=== PATIENT | male | born 1960 | race African-American/Black ===

== ENCOUNTER 2020-04-12 00:50 | Inpatient (IN) | payer OTHER ==
[~2020-04-12] VITALS: Ht 177.8 cm; Wt 80.0 kg
[2020-04-12] MEDS ORDERED: ACETAMINOPHEN 500 MG TAB PO ONE ×3 (01:45→14:00)
[2020-04-12 03:05] LABS: Basophils # (auto) 0.1 10 ^3/uL (0-0.2); Basophils % (auto) 0.6 % (0.0-2.0); Eosinophils # (auto) 0 10 ^3/uL (0-0.8); Hemoglobin 12.1 g/dL (13.5-17.5); Lymphocytes # (auto) 0.1 10 ^3/uL (0.4-5.4); Lymphocytes % (auto) 0.8 % (10.0-50.0); Mean Corpuscular Hemoglobin 31.3 pg (28.0-32.0); Mean Corpuscular Hgb Conc. 32.8 g/dL (32.0-36.0); Mean Corpuscular Volume 95.5 fL (80.0-100.0); Monocytes # (auto) 0.8 10 ^3/uL (0-1.3); Neutrophils % (auto) 90.6 % (37.0-80.0); Platelet Count (auto) 148 10^3/uL (140-450); Red Blood Cells 3.87 10^6/uL (4.5-5.90); Red Cell Distribution Width 15.9 % (11.8-14.3); White Blood Cell 9.9 10^3/uL (4.4-10.8)
[2020-04-12 03:22] LABS: Albumin 3.7 g/dL (3.4-5.0); Calcium 8.1 mg/dL (8.5-10.1); Potassium 4.4 mmol/L (3.5-5.1)
[2020-04-12 03:28] LABS: Bilirubin, Total 0.6 mg/dL (0.2-1.0); Total Protein 8.2 g/dL (6.4-8.2)
[2020-04-12 03:47] LABS: INR 1.15 (0.9-1.15); Partial Thromboplastin Time 31.5 sec (23.64-32.05)
[2020-04-12 03:50] LABS: BUN/Creatinine Ratio 5.7
[2020-04-12] MEDS ORDERED: cloNIDine HCL 0.1 MG TAB PO ONE (07:00)
[2020-04-12 08:19] LABS: Lactate Dehydrogenase 302 U/L (87-241)
[2020-04-12 08:27] LABS: CRP High Sensitivity > 19 mg/dL (< 0.3)
[2020-04-12] MEDS ORDERED: SODIUM CHLORIDE 0.9% 1,000 ML IV SCH (14:38)
[2020-04-12] MEDS ORDERED: MORPHINE SULF INJ 2 MG/ML SYRINGE 1ML IV PRN (14:45)
[2020-04-12] MEDS ORDERED: ALUM & MAG HYDROX-SIMETH LIQ(MAALOX) 30 ML PO PRN (14:45)
[2020-04-12] MEDS ORDERED: LORazepam 0.5 MG TAB PO PRN (14:45)
[2020-04-12] MEDS ORDERED: ACETAMINOPHEN 500 MG TAB PO PRN (14:45)
[2020-04-12] MEDS ORDERED: ACETAMINOPHEN 325 MG TAB PO PRN ×2 (14:45→21:15)
[2020-04-12] MEDS ORDERED: NITROGLYCERIN 0.4 MG SL TAB SL PRN (14:45)
[2020-04-12 16:24] LABS: Basophils # (auto) 0 10 ^3/uL (0-0.2); Basophils % (auto) 0.4 % (0.0-2.0); Eosinophils # (auto) 0.1 10 ^3/uL (0-0.8); Eosinophils % (auto) 0.6 % (0.0-7.0); Hemoglobin 11.1 g/dL (13.5-17.5); Lymphocytes # (auto) 0.1 10 ^3/uL (0.4-5.4); Lymphocytes % (auto) 1.1 % (10.0-50.0); Mean Corpuscular Hgb Conc. 32.7 g/dL (32.0-36.0); Mean Corpuscular Volume 94.8 fL (80.0-100.0); Monocytes # (auto) 0.7 10 ^3/uL (0-1.3); Monocytes % (auto) 8.9 % (0.0-12.0); Platelet Count (auto) 131 10^3/uL (140-450); Red Blood Cells 3.58 10^6/uL (4.5-5.90); Red Cell Distribution Width 16.4 % (11.8-14.3); White Blood Cell 7.9 10^3/uL (4.4-10.8)
[2020-04-12 16:34] LABS: Albumin 3.2 g/dL (3.4-5.0); Anion Gap 13 (5-15); Calcium 7.9 mg/dL (8.5-10.1); Carbon Dioxide 20 mmol/L (21-32); Chloride 101 mmol/L (98-107); Glucose 116 mg/dL (74-106); Magnesium 2.1 mg/dL (1.6-2.6); Potassium 4.8 mmol/L (3.5-5.1); Sodium 134 mmol/L (136-145)
[2020-04-12 16:42] LABS: Alanine Aminotransferase 18 U/L (16-61); Alkaline Phosphatase 163 U/L (45-117); Aspartate Aminotransferase 24 U/L (15-37); BUN/Creatinine Ratio 6.4; Bilirubin, Total 0.4 mg/dL (0.2-1.0); GFR African American 4 mL/min; GFR Non-African American 3 mL/min; Lactate Dehydrogenase 219 U/L (87-241); Total Protein 7.3 g/dL (6.4-8.2)
[2020-04-12] MEDS ORDERED: NIFE1TAB30 PO (16:50)
[2020-04-12] MEDS ORDERED: METO-169 PO (16:50)
[2020-04-12] MEDS ORDERED: SEVE800T8 PO (16:50)
[2020-04-12 16:55] LABS: Blood Urea Nitrogen 103 mg/dL (7-18)
[2020-04-12 17:18] LABS: CRP High Sensitivity > 19.0 mg/dL (< 0.3)
[2020-04-12] MEDS ORDERED: FUROSEMIDE 100 MG/10ML VIAL IV ONE (21:00)
[2020-04-12] MEDS ORDERED: DexAMETHasone SOD PHOS 4 MG/1ML SDV INJ IV ONE (21:00)
[2020-04-12] MEDS ORDERED: HEPARIN SODIUM (PORCINE) 5000 UNITS/ML 1ML VIAL IV ONE (21:15)
[2020-04-12 21:29] VITALS: BP 160/101
[2020-04-12 21:30] VITALS: BP 160/101
[2020-04-12] MEDS ORDERED: ALBUTEROL SULF HFA 90MCG INH 200DOSE IN SCH (22:00)
[2020-04-12] MEDS: MORPHINE SULF INJ 2 MG/ML SYRINGE 1ML IV PRN (22:08)
[2020-04-12] MEDS: hydrALAZINE HCL 25 MG TAB PO SCH (22:09)
[2020-04-12] MEDS: DOXYCYCLINE 100MG/250ML 250 ML IV SCH (23:09)
[2020-04-13] MEDS: HYDROmorphone HCL 2 MG/ML VL IV PRN ×2 (01:25→19:42)
[2020-04-13 05:00] VITALS: BP 150/93
[2020-04-13] MEDS: hydrALAZINE HCL 25 MG TAB PO SCH ×3 (05:56→22:17)
[2020-04-13] MEDS ORDERED: FUROSEMIDE 40 MG/4 ML VIAL IV SCH (06:00)
[2020-04-13 06:57] LABS: Basophils # (auto) 0.1 10 ^3/uL (0-0.2); Basophils % (auto) 0.5 % (0.0-2.0); Eosinophils # (auto) 0.1 10 ^3/uL (0-0.8); Eosinophils % (auto) 0.9 % (0.0-7.0); Hemoglobin 10.7 g/dL (13.5-17.5); Lymphocytes # (auto) 0.1 10 ^3/uL (0.4-5.4); Lymphocytes % (auto) 1.1 % (10.0-50.0); Mean Corpuscular Hemoglobin 31.2 pg (28.0-32.0); Mean Corpuscular Hgb Conc. 33.3 g/dL (32.0-36.0); Mean Corpuscular Volume 93.6 fL (80.0-100.0); Monocytes % (auto) 9.4 % (0.0-12.0); Neutrophils # (auto) 9.5 10 ^3/uL (1.6-8.6); Neutrophils % (auto) 88.1 % (37.0-80.0); Platelet Count (auto) 131 10^3/uL (140-450); Red Blood Cells 3.41 10^6/uL (4.5-5.90); Red Cell Distribution Width 16.2 % (11.8-14.3); White Blood Cell 10.8 10^3/uL (4.4-10.8)
[2020-04-13 07:16] LABS: INR 1.07 (0.9-1.15); Partial Thromboplastin Time 37.6 sec (23.64-32.05)
[2020-04-13 07:21] LABS: Potassium 5.5 mmol/L (3.5-5.1)
[2020-04-13 07:27] LABS: Bilirubin, Total 0.4 mg/dL (0.2-1.0); Calcium 7.8 mg/dL (8.5-10.1); Magnesium 2.4 mg/dL (1.6-2.6); Phosphorus 3.5 mg/dL (2.5-4.90); Total Protein 7.2 g/dL (6.4-8.2)
[2020-04-13 08:00] VITALS: BP 157/92
[2020-04-13] MEDS: SEVELAMER 800 MG TAB PO SCH ×3 (08:00→17:27)
[2020-04-13 09:05] VITALS: BP 157/92
[2020-04-13] MEDS: ZINC SULFATE 220mg CAP or TAB PO SCH (09:47)
[2020-04-13] MEDS: ASCORBIC ACID 1,000 MG TAB PO SCH (09:47)
[2020-04-13] MEDS: CHOLECALCIFEROL (VITD3) 1,000UNIT=25mCg TAB PO SCH (09:47)
[2020-04-13] MEDS: METOPROLOL SUCCINATE XL 50 MG TAB PO SCH (09:56)
[2020-04-13] MEDS: DOXYCYCLINE 100MG/250ML 250 ML IV SCH ×2 (09:57→22:17)
[2020-04-13] MEDS: ONDANSETRON HCL 4 MG/2 ML VIAL IV PRN (09:58)
[2020-04-13] MEDS: MORPHINE SULF INJ 2 MG/ML SYRINGE 1ML IV PRN ×2 (09:58→17:04)
[2020-04-13] MEDS ORDERED: ENOXAPARIN SOD 30 MG/0.3 ML SYRINGE SC SCH (10:00)
[2020-04-13] MEDS ORDERED: DexAMETHasone SOD PHOS 4 MG/1ML SDV INJ IV SCH (10:00)
[2020-04-13] MEDS ORDERED: CHOLECALCIFEROL (VITD3) 1,000UNIT=25mCg TAB PO SCH (10:00)
[2020-04-13] MEDS ORDERED: SODIUM CHL 0.9% 1000 ML BAG XX ONE (10:45)
[2020-04-13 12:51] VITALS: BP 156/98
[2020-04-13] MEDS ORDERED: VANCOMYCIN 1,250 MG in D5W 5% 250 ML IV ONE (15:00)
[2020-04-13 16:35] VITALS: BP 162/99
[2020-04-13] MEDS: hydrALAZINE HCL 20 MG/ML VL IV PRN (16:47)
[2020-04-13 22:00] VITALS: BP 132/92
[2020-04-14] MEDS: MORPHINE SULF INJ 2 MG/ML SYRINGE 1ML IV PRN ×3 (01:47→18:47)
[2020-04-14 05:16] VITALS: BP 140/84
[2020-04-14] MEDS: hydrALAZINE HCL 25 MG TAB PO SCH ×3 (06:08→21:32)
[2020-04-14 07:22] LABS: Basophils # (auto) 0 10 ^3/uL (0-0.2); Basophils % (auto) 0.3 % (0.0-2.0); Eosinophils # (auto) 0 10 ^3/uL (0-0.8); Hematocrit 33.7 % (41.0-53.0); Hemoglobin 11.1 g/dL (13.5-17.5); Lymphocytes # (auto) 0.2 10 ^3/uL (0.4-5.4); Lymphocytes % (auto) 2.3 % (10.0-50.0); Mean Corpuscular Hemoglobin 30.6 pg (28.0-32.0); Mean Corpuscular Hgb Conc. 32.8 g/dL (32.0-36.0); Mean Corpuscular Volume 93.4 fL (80.0-100.0); Monocytes # (auto) 1.4 10 ^3/uL (0-1.3); Monocytes % (auto) 14.5 % (0.0-12.0); Neutrophils # (auto) 8.1 10 ^3/uL (1.6-8.6); Neutrophils % (auto) 82.9 % (37.0-80.0); Platelet Count (auto) 151 10^3/uL (140-450); Red Blood Cells 3.61 10^6/uL (4.5-5.90); Red Cell Distribution Width 16.4 % (11.8-14.3); White Blood Cell 9.8 10^3/uL (4.4-10.8)
[2020-04-14 07:36] LABS: Calcium 7.3 mg/dL (8.5-10.1); Magnesium 2.1 mg/dL (1.6-2.6)
[2020-04-14 07:39] LABS: BUN/Creatinine Ratio 6.7
[2020-04-14] MEDS: ZINC SULFATE 220mg CAP or TAB PO SCH (08:14)
[2020-04-14] MEDS: ASCORBIC ACID 1,000 MG TAB PO SCH (08:14)
[2020-04-14 09:00] VITALS: BP 152/97
[2020-04-14] MEDS ORDERED: SODIUM CHL 0.9% 1000 ML BAG XX ONE (09:30)
[2020-04-14] MEDS: ONDANSETRON HCL 4 MG/2 ML VIAL IV PRN (09:40)
[2020-04-14] MEDS: METOPROLOL SUCCINATE XL 50 MG TAB PO SCH (09:41)
[2020-04-14] MEDS: SEVELAMER 800 MG TAB PO SCH ×3 (09:41→17:25)
[2020-04-14] MEDS: DOXYCYCLINE 100MG/250ML 250 ML IV SCH ×2 (09:41→21:31)
[2020-04-14] MEDS: HYDROmorphone HCL 2 MG/ML VL IV PRN (09:41)
[2020-04-14] MEDS: CHOLECALCIFEROL (VITD3) 1,000UNIT=25mCg TAB PO SCH (09:41)
[2020-04-14] MEDS: HEPARIN SODIUM (PORCINE) 5000 UNITS/ML 1ML VIAL SC SCH ×2 (09:42→21:33)
[2020-04-14 13:00] VITALS: BP 150/101
[2020-04-14 17:00] VITALS: BP 142/91
[2020-04-14 22:00] VITALS: BP 134/86
[2020-04-15] MEDS: MORPHINE SULF INJ 2 MG/ML SYRINGE 1ML IV PRN ×3 (01:19→17:35)
[2020-04-15 05:00] VITALS: BP 134/90
[2020-04-15 06:01] LABS: Hemoglobin 11.7 g/dL (13.5-17.5); Mean Corpuscular Hemoglobin 31.5 pg (28.0-32.0); Mean Corpuscular Hgb Conc. 33.4 g/dL (32.0-36.0); Mean Corpuscular Volume 94.4 fL (80.0-100.0); Platelet Count (auto) 154 10^3/uL (140-450); Red Blood Cells 3.71 10^6/uL (4.5-5.90); Red Cell Distribution Width 16.5 % (11.8-14.3); White Blood Cell 8.7 10^3/uL (4.4-10.8)
[2020-04-15 06:18] LABS: Basophils % (manual) 0 (0.0-2.0); Blast Cells 0; Eosinophils % (manual) 0 (0-7); Metamyelocytes % 0; Myelocytes % 0; Promyelocytes % 0; Reactive Lymphocytes 0
[2020-04-15 06:19] LABS: Potassium 3.9 mmol/L (3.5-5.1)
[2020-04-15] MEDS: hydrALAZINE HCL 25 MG TAB PO SCH ×3 (06:20→21:51)
[2020-04-15 06:32] LABS: Albumin 2.9 g/dL (3.4-5.0); BUN/Creatinine Ratio 6.7; Bilirubin, Total 0.4 mg/dL (0.2-1.0); Calcium 7.6 mg/dL (8.5-10.1); Total Protein 7.4 g/dL (6.4-8.2)
[2020-04-15 08:00] LABS: Band Neutrophils % (manual) 1; Lymphocytes % (manual) 10 (10.0-50.0); Monocytes % (manual) 17 (0-12)
[2020-04-15] MEDS: SEVELAMER 800 MG TAB PO SCH ×3 (08:35→17:35)
[2020-04-15] MEDS: hydrALAZINE HCL 20 MG/ML VL IV PRN (08:36)
[2020-04-15 09:00] VITALS: BP 166/95
[2020-04-15] MEDS: CHOLECALCIFEROL (VITD3) 1,000UNIT=25mCg TAB PO SCH (09:50)
[2020-04-15] MEDS: DOXYCYCLINE 100MG/250ML 250 ML IV SCH ×2 (09:50→21:51)
[2020-04-15] MEDS: METOPROLOL SUCCINATE XL 50 MG TAB PO SCH (09:50)
[2020-04-15] MEDS: HEPARIN SODIUM (PORCINE) 5000 UNITS/ML 1ML VIAL SC SCH ×2 (09:51→21:51)
[2020-04-15] MEDS ORDERED: ASCORBIC ACID 500 MG TAB PO SCH (10:00)
[2020-04-15] MEDS ORDERED: IBUPROFEN 600 MG TAB PO PRN (12:00)
[2020-04-15 13:00] VITALS: BP 149/99
[2020-04-15] MEDS: TROLAMINE SALICYLATE 10% TOP CREAM TOP PRN (14:00)
[2020-04-15 17:00] VITALS: BP 138/91
[2020-04-15 21:57] VITALS: BP 124/96
[2020-04-16 05:00] VITALS: BP 160/100
[2020-04-16] MEDS: hydrALAZINE HCL 25 MG TAB PO SCH ×3 (05:55→22:23)
[2020-04-16] MEDS ORDERED: VANCOMYCIN 500 MG in D5W 5% 100 ML IV ONE (07:00)
[2020-04-16 07:54] LABS: Hematocrit 38.3 % (41.0-53.0); Hemoglobin 12.6 g/dL (13.5-17.5); Mean Corpuscular Hemoglobin 30.6 pg (28.0-32.0); Mean Corpuscular Hgb Conc. 32.9 g/dL (32.0-36.0); Mean Corpuscular Volume 93.1 fL (80.0-100.0); Platelet Count (auto) 267 10^3/uL (140-450); Red Blood Cells 4.11 10^6/uL (4.5-5.90); Red Cell Distribution Width 16.6 % (11.8-14.3); White Blood Cell 10.9 10^3/uL (4.4-10.8)
[2020-04-16 08:00] LABS: Basophils % (manual) 0 (0.0-2.0); Blast Cells 0; Eosinophils % (manual) 0 (0-7); Metamyelocytes % 0; Myelocytes % 0; Promyelocytes % 0; Reactive Lymphocytes 0
[2020-04-16] MEDS: SEVELAMER 800 MG TAB PO SCH ×3 (08:00→18:45)
[2020-04-16 08:22] LABS: BUN/Creatinine Ratio 6.6; Calcium 8.2 mg/dL (8.5-10.1)
[2020-04-16] MEDS: TROLAMINE SALICYLATE 10% TOP CREAM TOP PRN (08:24)
[2020-04-16 09:00] VITALS: BP 126/100
[2020-04-16 09:32] LABS: Band Neutrophils % (manual) 5; Lymphocytes % (manual) 4 (10.0-50.0); Monocytes % (manual) 20 (0-12)
[2020-04-16] MEDS: METOPROLOL SUCCINATE XL 50 MG TAB PO SCH (10:37)
[2020-04-16] MEDS: CHOLECALCIFEROL (VITD3) 1,000UNIT=25mCg TAB PO SCH (10:37)
[2020-04-16] MEDS: DOXYCYCLINE 100MG/250ML 250 ML IV SCH ×2 (10:39→22:22)
[2020-04-16] MEDS: HEPARIN SODIUM (PORCINE) 5000 UNITS/ML 1ML VIAL SC SCH ×2 (10:41→22:41)
[2020-04-16 13:00] VITALS: BP 142/96
[2020-04-16] MEDS ORDERED: VANCOMYCIN 1GM/250ML 250 ML IV ONE (15:15)
[2020-04-16 16:44] VITALS: BP 129/93
[2020-04-16 22:00] VITALS: BP 134/97
[2020-04-17 05:00] VITALS: BP 150/109
[2020-04-17] MEDS: hydrALAZINE HCL 25 MG TAB PO SCH (05:44)
[2020-04-17] MEDS ORDERED: ceFAZolin 1GM 2 GM in D5W 5% 100 ML IV ONE (07:00)
[2020-04-17] MEDS ORDERED: SODIUM CHL 0.9% 1000 ML BAG XX ONE (07:00)
[2020-04-17 08:22] LABS: Calcium 7.5 mg/dL (8.5-10.1); Potassium 4.3 mmol/L (3.5-5.1)
[2020-04-17 09:00] VITALS: BP 159/101
[2020-04-17] MEDS: SEVELAMER 800 MG TAB PO SCH ×2 (10:01→12:11)
[2020-04-17] MEDS: CHOLECALCIFEROL (VITD3) 1,000UNIT=25mCg TAB PO SCH (10:40)
[2020-04-17] MEDS: METOPROLOL SUCCINATE XL 50 MG TAB PO SCH (10:40)
[2020-04-17] MEDS: HEPARIN SODIUM (PORCINE) 5000 UNITS/ML 1ML VIAL SC SCH (10:41)
[2020-04-17 11:57] VITALS: BP 160/98
[2020-04-17] MEDS: DOXYCYCLINE 100MG/250ML 250 ML IV SCH (12:11)
[2020-04-17 13:00] VITALS: BP 137/90
== END 2020-04-17 14:27 | disposition home or self-care (01) | DRG 871 ==
LOC: ER 00:51 → TELE 00:52 → TELE-WESTW 21:14
PROVIDERS: ADMIT Hospitalist; ATTEND Internal Medicine Geriatric Medicine
PROC: 5A1D70Z Performance of Urinary Filtration, Intermittent, Less than 6 Hours Per Day (ICD-10-PCS; principal; 2020-04-13)
PROC: 5A1D70Z Performance of Urinary Filtration, Intermittent, Less than 6 Hours Per Day (ICD-10-PCS; 2020-04-14)
PROC: 5A1D70Z Performance of Urinary Filtration, Intermittent, Less than 6 Hours Per Day (ICD-10-PCS; 2020-04-15)
PROC: 5A1D70Z Performance of Urinary Filtration, Intermittent, Less than 6 Hours Per Day (ICD-10-PCS; 2020-04-17)
DX: A41.01 Sepsis due to Methicillin susceptible Staphylococcus aureus (principal); N18.6 End stage renal disease; J18.9 Pneumonia, unspecified organism; I13.2 Hypertensive heart and chronic kidney disease with heart failure and with stage 5 chronic kidney disease, or end stage renal disease; E87.5 Hyperkalemia; R79.82 Elevated C-reactive protein (CRP); E78.5 Hyperlipidemia, unspecified; D50.9 Iron deficiency anemia, unspecified; M43.6 Torticollis; D63.1 Anemia in chronic kidney disease; D53.9 Nutritional anemia, unspecified; T38.0X5A Adverse effect of glucocorticoids and synthetic analogues, initial encounter; R74.0 Nonspecific elevation of levels of transaminase and lactic acid dehydrogenase [LDH]; R94.4 Abnormal results of kidney function studies; R79.89 Other specified abnormal findings of blood chemistry; Z99.2 Dependence on renal dialysis; Z79.899 Other long term (current) drug therapy; Z88.0 Allergy status to penicillin; I50.9 Heart failure, unspecified; Z20.828 Contact with and (suspected) exposure to other viral communicable diseases
CPT/HCPCS: 36415; 71045; 78582; 80048; 80053; 80061; 80202; 82728; 83036; 83540; 83550; 83605; 83615; 83735; 83880; 84100; 84443; 84484; 85007; 85025; 85027; 85379; 85610; 85730; 86141; 87040; 87070; 87077; 87186; 87804; 87880; 90935; 93005; 93306; 99291; G0378; J0690; J1100; J1642; J2405; J3490; J7060

== ENCOUNTER 2020-04-23 14:02 | Emergency (ER) | payer OTHER, MEDICAID ==
[~2020-04-23] VITALS: Ht 177.8 cm; Wt 79.4 kg
[~2020-04-23 14:02] MED LIST: METO-169 PO; NIFE1TAB30 PO; SEVE800T8 PO
[2020-04-23 14:21] VITALS: BP 129/79
[2020-04-23] MEDS ORDERED: traMADol HCL 50 MG TAB PO ONE (15:45)
== END 2020-04-23 16:02 | disposition home or self-care (01) ==
LOC: ER 14:02
DX: M50.10 Cervical disc disorder with radiculopathy, unspecified cervical region (principal); I12.0 Hypertensive chronic kidney disease with stage 5 chronic kidney disease or end stage renal disease; N18.6 End stage renal disease; Z88.0 Allergy status to penicillin
CPT/HCPCS: 72040

== ENCOUNTER 2020-08-25 16:51 | Emergency (ER) | payer OTHER, MEDICAID | END 2020-08-25 17:30 | disposition left against medical advice (07) | LOC: ER 16:51 | DX: R50.9 Fever, unspecified (principal); Z53.21 Procedure and treatment not carried out due to patient leaving prior to being seen by health care provider ==

== ENCOUNTER 2020-08-28 12:16 | Emergency (ER) | payer OTHER, MEDICAID ==
[~2020-08-28] VITALS: Ht 177.8 cm; Wt 81.6 kg
[2020-08-28 16:19] VITALS: BP 102/65
== END 2020-08-28 16:32 | disposition home or self-care (01) ==
LOC: ER 12:16
DX: M51.36 Other intervertebral disc degeneration, lumbar region (principal); M79.18 Myalgia, other site; I12.0 Hypertensive chronic kidney disease with stage 5 chronic kidney disease or end stage renal disease; N18.6 End stage renal disease; Z88.0 Allergy status to penicillin
CPT/HCPCS: 72070; 72100; 73030

== ENCOUNTER 2020-08-30 06:21 | Inpatient (IN) | payer OTHER, MEDICAID ==
[~2020-08-30] VITALS: Ht 177.8 cm; Wt 75.6 kg
[2020-08-30 07:50] LABS: Basophils # (auto) 0.1 10 ^3/uL (0-0.2); Basophils % (auto) 0.5 % (0.0-2.0); Eosinophils # (auto) 0.2 10 ^3/uL (0-0.8); Eosinophils % (auto) 1.2 % (0.0-7.0); Hematocrit 31.3 % (41.0-53.0); Lymphocytes # (auto) 0.3 10 ^3/uL (0.4-5.4); Lymphocytes % (auto) 1.5 % (10.0-50.0); Mean Corpuscular Hemoglobin 29.8 pg (28.0-32.0); Mean Corpuscular Hgb Conc. 31.9 g/dL (32.0-36.0); Mean Corpuscular Volume 93.4 fL (80.0-100.0); Monocytes # (auto) 2.7 10 ^3/uL (0-1.3); Monocytes % (auto) 13.8 % (0.0-12.0); Neutrophils # (auto) 16.1 10 ^3/uL (1.6-8.6); Platelet Count (auto) 220 10^3/uL (140-450); Red Blood Cells 3.35 10^6/uL (4.5-5.90); Red Cell Distribution Width 16.9 % (11.8-14.3); White Blood Cell 19.4 10^3/uL (4.4-10.8)
[2020-08-30 08:11] LABS: Albumin 2.6 g/dL (3.4-5.0); Anion Gap 22 (5-15); Calcium 7.5 mg/dL (8.5-10.1); Carbon Dioxide 17 mmol/L (21-32); Chloride 85 mmol/L (98-107); Glucose 134 mg/dL (74-106); Potassium 5.2 mmol/L (3.5-5.1); Sodium 124 mmol/L (136-145)
[2020-08-30 08:18] LABS: Alanine Aminotransferase 62 U/L (16-61); Alkaline Phosphatase 134 U/L (45-117); Aspartate Aminotransferase 131 U/L (15-37); BUN/Creatinine Ratio 6.2; Bilirubin, Total 0.5 mg/dL (0.2-1.0); GFR African American 3 mL/min; GFR Non-African American 2 mL/min; Total Protein 7.4 g/dL (6.4-8.2)
[2020-08-30 08:30] LABS: Blood Urea Nitrogen 139 mg/dL (7-18)
[2020-08-30] MEDS ORDERED: InsuLIN REG 1unit/0.01ml Soln (100units/ml) IV ONE (10:30)
[2020-08-30] MEDS ORDERED: ALBUTEROL SULF 2.5 MG/0.5ML(0.5%) NEB SOLN NEB ONE (10:30)
[2020-08-30] MEDS ORDERED: CALCIUM GLUC 4.65meq/50ml D5AE 50 ML IV ONE (10:30)
[2020-08-30] MEDS ORDERED: DEXTROSE (50%) 50ML SYRG IV ONE (10:30)
[2020-08-30] MEDS ORDERED: DOXYCYCLINE 100MG/250ML 250 ML IV ONE (10:30)
[2020-08-30] MEDS ORDERED: SODIUM BICARBONATE 8.4% INJ 50ML SYRINGE IV ONE (10:30)
[2020-08-30] MEDS ORDERED: FUROSEMIDE 20 MG/2 ML VIAL IV ONE (10:30)
[2020-08-30 11:01] LABS: Lactate Dehydrogenase 376 U/L (87-241)
[2020-08-30 11:02] LABS: CRP High Sensitivity > 19 mg/dL (< 0.3)
[2020-08-30] MEDS ORDERED: ONDANSETRON HCL 4 MG/2 ML VIAL IV PRN (14:15)
[2020-08-30] MEDS ORDERED: NITROGLYCERIN 0.4 MG SL TAB SL PRN (14:15)
[2020-08-30] MEDS ORDERED: MORPHINE SULF INJ 2 MG/ML SYRINGE 1ML IV PRN (14:15)
[2020-08-30] MEDS ORDERED: SEVE800T8 PO (14:48)
[2020-08-30] MEDS ORDERED: NIFE1TAB30 PO (14:48)
[2020-08-30] MEDS ORDERED: METO-6 PO (14:48)
[2020-08-30] MEDS ORDERED: HYDR-4833 PO (14:48)
[2020-08-30] MEDS: FAMOTIDINE 20 MG TAB PO SCH (18:14)
[2020-08-30] MEDS: SEVELAMER 800 MG TAB PO SCH (18:52)
[2020-08-30] MEDS: SODIUM ZIRCONIUM CYCL 10 GM PAK PO SCH ×2 (22:00→22:18)
[2020-08-30] MEDS: ACETAMINOPHEN 500 MG TAB PO PRN (22:40)
[2020-08-31] MEDS ORDERED: SODIUM ZIRCONIUM CYCL 10 GM PAK PO ONE (00:30)
[2020-08-31] MEDS: SODIUM ZIRCONIUM CYCL 10 GM PAK PO SCH (06:11)
[2020-08-31 08:07] LABS: Basophils # (auto) 0 10 ^3/uL (0-0.2); Basophils % (auto) 0.1 % (0.0-2.0); Eosinophils # (auto) 0.1 10 ^3/uL (0-0.8); Eosinophils % (auto) 0.5 % (0.0-7.0); Hematocrit 30.4 % (41.0-53.0); Hemoglobin 10.1 g/dL (13.5-17.5); Lymphocytes # (auto) 0.3 10 ^3/uL (0.4-5.4); Mean Corpuscular Hemoglobin 30.6 pg (28.0-32.0); Mean Corpuscular Hgb Conc. 33.1 g/dL (32.0-36.0); Mean Corpuscular Volume 92.6 fL (80.0-100.0); Monocytes # (auto) 2.9 10 ^3/uL (0-1.3); Monocytes % (auto) 17.4 % (0.0-12.0); Neutrophils # (auto) 13.1 10 ^3/uL (1.6-8.6); Nucleated Red Blood Cells % 0.1 %; Platelet Count (auto) 230 10^3/uL (140-450); Red Blood Cells 3.28 10^6/uL (4.5-5.90); Red Cell Distribution Width 16.6 % (11.8-14.3); White Blood Cell 16.4 10^3/uL (4.4-10.8)
[2020-08-31 08:15] LABS: Albumin 2.4 g/dL (3.4-5.0); Calcium 7.6 mg/dL (8.5-10.1)
[2020-08-31 08:20] LABS: Bilirubin, Total 0.5 mg/dL (0.2-1.0); Total Protein 6.8 g/dL (6.4-8.2)
[2020-08-31 08:40] LABS: BUN/Creatinine Ratio 7.4
[2020-08-31 08:43] LABS: Potassium 5.9 mmol/L (3.5-5.1)
[2020-08-31] MEDS: cefTRIAXone 1GM/50ML D5W 50 ML IV SCH (09:00)
[2020-08-31] MEDS ORDERED: FAMOTIDINE 20 MG TAB PO SCH (10:00)
[2020-08-31] MEDS ORDERED: AZITHROMYCIN 500MG/ 250ML 250 ML IV SCH (10:00)
[2020-08-31] MEDS: ENOXAPARIN SOD 40 MG/0.4 ML SYRINGE SC SCH (10:32)
[2020-08-31] MEDS: SEVELAMER 800 MG TAB PO SCH ×3 (10:35→18:54)
[2020-08-31] MEDS: NIFEdipine ER 30 MG TAB PO SCH (10:35)
[2020-08-31] MEDS: METOPROLOL SUCCINATE XL 50 MG TAB PO SCH (10:35)
[2020-08-31 11:20] VITALS: BP 110/60
[2020-08-31 11:35] VITALS: BP 110/60
[2020-08-31] MEDS ORDERED: SODIUM CHL 0.9% 1000 ML BAG XX ONE (12:30)
[2020-08-31] MEDS ORDERED: HEPARIN SODIUM (PORCINE) 5000 UNITS/ML 1ML VIAL ONE (12:38)
[2020-08-31 14:19] VITALS: BP 110/60
[2020-08-31] MEDS: MORPHINE SULF INJ 2 MG/ML SYRINGE 1ML IV PRN (15:00)
[2020-08-31] MEDS ORDERED: VANCOMYCIN PER PHARMACY 0 MG IV SCH (15:00)
--- NOTE | 2020-08-31 16:00 | NUR ---
Telemetry admit from ER GENOVEVA RICE admitted to Telemetry unit after SBAR received. Patient oriented to Delma Villalpando, primary RN, unit, room, bed, and unit policies regarding patient care and visiting hours. Patient now on continuous telemetry monitoring, tele box #55 and telemetry reading on arrival to unit is [place] AT 115. Updated on POC and instructed to call for assistance as needed. Bed locked in lowest position, side rails up x2, call light within reach. Safety precautions in place. Will continue to monitor for changes.
[2020-08-31 17:00] VITALS: BP 108/54
[2020-08-31] MEDS ORDERED: VANCOMYCIN 1,250 MG in D5W 5% 250 ML IV ONE (17:00)
--- NOTE | 2020-08-31 19:00 | NUR ---
Opening Shift Note Assumed care of patient, awake and alert. No S/S of distress/SOB, patient c/o pain in his back, will administer pain medication per protocol. Patient in the lowest possible position with call light within reach and bed rails up x2. Instructed on POC and to call for assist PRN, will continue to monitor for changes Q1hr and PRN.
[2020-08-31 20:00] VITALS: BP 93/60
--- NOTE | 2020-08-31 20:30 | NUR ---
[place] given. Patient states that Morphine does not help. Will monitor patient.
[2020-08-31] MEDS ORDERED: EPOETIN ALFA 10,000 UNIT/1 ML VIAL SC ONE (21:00)
[2020-09-01] MEDS: HYDROcodone-ACET 5/325MG TAB PO PRN ×2 (03:10→04:56)
[2020-09-01 06:24] LABS: Basophils # (auto) 0.1 10 ^3/uL (0-0.2); Basophils % (auto) 0.4 % (0.0-2.0); Eosinophils # (auto) 0 10 ^3/uL (0-0.8); Eosinophils % (auto) 0.2 % (0.0-7.0); Hematocrit 27.8 % (41.0-53.0); Hemoglobin 9.2 g/dL (13.5-17.5); Lymphocytes # (auto) 0.5 10 ^3/uL (0.4-5.4); Lymphocytes % (auto) 3.2 % (10.0-50.0); Mean Corpuscular Hemoglobin 30.6 pg (28.0-32.0); Mean Corpuscular Volume 92.7 fL (80.0-100.0); Monocytes # (auto) 2.8 10 ^3/uL (0-1.3); Monocytes % (auto) 17.4 % (0.0-12.0); Neutrophils # (auto) 12.7 10 ^3/uL (1.6-8.6); Neutrophils % (auto) 78.8 % (37.0-80.0); Platelet Count (auto) 283 10^3/uL (140-450); White Blood Cell 16.2 10^3/uL (4.4-10.8)
[2020-09-01 06:30] LABS: BUN/Creatinine Ratio 7.6; Calcium 7.5 mg/dL (8.5-10.1); Magnesium 2.3 mg/dL (1.6-2.6); Potassium 5.1 mmol/L (3.5-5.1)
--- NOTE | 2020-09-01 06:41 | NUR ---
Critical lab trending down; BUN 142, previously 180 Creatinine 18.8, previously 24.3. Labs trending down, will continue to monitor patient.
--- NOTE | 2020-09-01 07:35 | NUR ---
Opening Shift Note Assumed care of patient, awake and alert. No S/S of distress/SOB, patient c/o of lower back pain but denies any pain medication at this time. Updated on POC and instructed to call for assistance as needed, patient verbalized understanding. Bed locked in lowest position, side rails up x2, call light within reach. Will continue to monitor for changes Q1hr and PRN.
[2020-09-01] MEDS: SEVELAMER 800 MG TAB PO SCH ×4 (08:00→17:46)
[2020-09-01 09:00] VITALS: BP 101/58
[2020-09-01] MEDS: cefTRIAXone 1GM/50ML D5W 50 ML IV SCH (09:33)
[2020-09-01] MEDS: METOPROLOL SUCCINATE XL 50 MG TAB PO SCH ×2 (09:34→10:00)
[2020-09-01] MEDS: NIFEdipine ER 30 MG TAB PO SCH ×2 (09:34→10:00)
[2020-09-01] MEDS: ENOXAPARIN SOD 40 MG/0.4 ML SYRINGE SC SCH (09:34)
--- NOTE | 2020-09-01 10:00 | NUR ---
PATIENT HAD LARGE BOWEL MOVEMENT PATIENT CLEANED UP AND COMPLETE LINEN CHANGED. PATIENT POSITIONED FOR COMFORT.
--- NOTE | 2020-09-01 10:14 | NUR ---
BEHAVIORAL HEALTH CARE MANAGER AT BEDSIDE
[2020-09-01] MEDS ORDERED: SODIUM CHL 0.9% 1000 ML BAG XX ONE (10:30)
[2020-09-01] MEDS ORDERED: HEPARIN SODIUM (PORCINE) 5000 UNITS/ML 1ML VIAL SC ONE (10:45)
[2020-09-01] MEDS ORDERED: HYDROcodone-ACET 5/325MG TAB PO PRN (11:30)
[2020-09-01] MEDS: CARISOPRODOL 350 MG TAB PO PRN (12:24)
[2020-09-01] MEDS ORDERED: HEPARIN SODIUM (PORCINE) 5000 UNITS/ML 1ML VIAL ONE (12:26)
[2020-09-01 13:00] VITALS: BP 128/69
--- NOTE | 2020-09-01 13:18 | NUR ---
DIALYSIS COMPLETED PATIENT TOLERATED WELL PER CANAL TENDER. VITALS STABLE. LAST BP 110/54, HR 111. PER CANAL TENDER 2L REMOVED.
[2020-09-01] MEDS: FAMOTIDINE 20 MG TAB PO SCH (15:00)
[2020-09-01 17:00] VITALS: BP 104/56
[2020-09-01] MEDS ORDERED: VANCOMYCIN 1GM/250ML 250 ML IV ONE (17:00)
--- NOTE | 2020-09-01 17:10 | NUR ---
DISCHARGE HELD TILL TOMORROW PER MD JAUREGUI PATIENT IS TO BE DISCHARGED AFTER DIALYSIS IS COMPLETE AND IF PATIENT IS AMBULATING AND MOVING AROUND INDEPENDENTLY. AT THIS TIME PATIENT IS NON AMBULATORY, HUNCHED OVER IN PAIN IN BED. PATIENT STATES HE DOES NOT WANT TO MOVE AND HE WOULD RATHER GO HOME IN THE MORNING.
--- NOTE | 2020-09-01 19:40 | NUR ---
Opening Shift Note Assumed care of patient, awake and alert. No S/S of distress/SOB or pain. Instructed on POC and to call for assist PRN, will continue to monitor for changes Q1hr and PRN. Bed locked and in lowest position with call light in reach.
[2020-09-01] MEDS ORDERED: EPOETIN ALFA 10,000 UNIT/1 ML VIAL SC ONE (21:00)
[2020-09-01 22:00] VITALS: BP 112/54
[2020-09-02] MEDS: MORPHINE SULF INJ 2 MG/ML SYRINGE 1ML IV PRN (01:23)
[2020-09-02 05:34] VITALS: BP 101/68
[2020-09-02] MEDS: SEVELAMER 800 MG TAB PO SCH ×3 (08:19→18:31)
[2020-09-02 08:37] LABS: Basophils # (auto) 0 10 ^3/uL (0-0.2); Basophils % (auto) 0.1 % (0.0-2.0); Eosinophils # (auto) 0 10 ^3/uL (0-0.8); Eosinophils % (auto) 0.1 % (0.0-7.0); Hematocrit 29.3 % (41.0-53.0); Hemoglobin 9.5 g/dL (13.5-17.5); Lymphocytes # (auto) 0.7 10 ^3/uL (0.4-5.4); Lymphocytes % (auto) 3.4 % (10.0-50.0); Mean Corpuscular Hemoglobin 30.1 pg (28.0-32.0); Mean Corpuscular Hgb Conc. 32.6 g/dL (32.0-36.0); Mean Corpuscular Volume 92.4 fL (80.0-100.0); Monocytes # (auto) 2.7 10 ^3/uL (0-1.3); Monocytes % (auto) 14.1 % (0.0-12.0); Neutrophils % (auto) 82.3 % (37.0-80.0); Platelet Count (auto) 343 10^3/uL (140-450); Red Blood Cells 3.17 10^6/uL (4.5-5.90); Red Cell Distribution Width 15.8 % (11.8-14.3); White Blood Cell 19.4 10^3/uL (4.4-10.8)
[2020-09-02 09:00] VITALS: BP 124/67
[2020-09-02] MEDS: ENOXAPARIN SOD 40 MG/0.4 ML SYRINGE SC SCH (09:50)
[2020-09-02] MEDS: METOPROLOL SUCCINATE XL 50 MG TAB PO SCH (09:52)
[2020-09-02] MEDS: NIFEdipine ER 30 MG TAB PO SCH (09:52)
[2020-09-02] MEDS: cefTRIAXone 1GM/50ML D5W 50 ML IV SCH (09:53)
--- NOTE | 2020-09-02 10:00 | NUR ---
Pain Patient complained of back pain, however patient refused morphine and Hiko, Ice packs given, will reassess.
[2020-09-02] MEDS: CARISOPRODOL 350 MG TAB PO PRN (10:03)
[2020-09-02 10:36] LABS: BUN/Creatinine Ratio 6.7
--- NOTE | 2020-09-02 11:38 | NUR ---
Assessment Patient is a 60-year-old male who is alert and oriented. Prior to admission patient reside home with family and functioned independently. Prior to admission patient could care for his own ADLs. Per patient he does not have any medical equipment now. Per patient he will return home to his prior living arrangements post discharge and family will transport him home at anytime on discharge day. Patient informed me he feels safe returning home and has great family support. Informed patient he has the right to participate in all discharge planning. Patient does not have an advance directive. Patient has been provided with an advance directive. Patient verbalize understanding d/c plan. Addendum: 09/02/20 at 1140 by THADDEUS RAMOS Amended: Links added.
[2020-09-02] MEDS: ACETAMINOPHEN 500 MG TAB PO PRN (12:41)
--- NOTE | 2020-09-02 15:40 | NUR ---
Phone call to patient's mother went to voicemail . Will keep trying.
--- NOTE | 2020-09-02 15:57 | NUR ---
Per Marimar with [facility] ([phone]), patient will be seen within 24 - 48 hours post discharge. MARY has notify Che MYLES.
--- NOTE | 2020-09-02 16:15 | NUR ---
Phone call with patient's mother As per Cindy (patient's mother), she is unable to move the patient around and he does not have a wheelchair. RN will follow-up with social insurance administrator to see if wheelchair can be ordered for patient.
--- NOTE | 2020-09-02 16:45 | NUR ---
Discharge on Hold Dr. Ruggiero was notified of Cindy's concern regarding unable to move patient around and not having a wheelchair. Order for wheelchair placed and discharge to be held. Will notify patient and family.
--- NOTE | 2020-09-02 17:05 | NUR ---
Discharge held Mother Cindy ([phone]) notified that discharge is held for tomorrow 09/03/20. custodial worker will work to get wheelchair for the patient.
--- NOTE | 2020-09-02 19:07 | NUR ---
Assumed care of patient Assumed care of patient after receiving report from day RN. No s/s of distress, pain, or SOB noted, patient on 2L via NC. Patient resting in bed, locked x2 side rails for safety with HOB high fowlers. Call light within reach, patient updated on plan of care and to call for assistance. Will continue to monitor.
[2020-09-02 22:00] VITALS: BP 129/70
--- NOTE | 2020-09-02 23:29 | NUR ---
Patient repositioned Patient sat at edge of bed with RN assistance and dangled feet. Patient then repositioned laying in bed. Patient tolerated intervention well. Will continue to monitor.
--- NOTE | 2020-09-03 04:47 | NUR ---
Received call from patients girlfriend Regina. She did not have a password, per GF she had been having the day RN ask the patient to verify that it was okay to give her information. Patient is sleeping at this time; informed GF that we encourage resting in patients while hospitalized and she verbalized understanding and did not want him woken. JOANNA GargRegina stated she would call back around noon to see if he is awake to give verbal verification. JOANNA Rogers asked to pass message on to patient to call her when he can. Regina phone number [phone]. Will leave message with patient.
[2020-09-03 05:07] VITALS: BP 124/66
[2020-09-03] MEDS ORDERED: SODIUM CHL 0.9% 1000 ML BAG XX ONE (06:30)
--- NOTE | 2020-09-03 07:45 | NUR ---
Opening Shift Note Assumed care of patient, awake and alert. No S/S of distress/SOB. Instructed on POC and to call for assist PRN, will continue to monitor for changes Q1hr and PRN. Patient complained of headache, will medicate with Tylenol as ordered. compress machine operator at bedside.
[2020-09-03] MEDS: SEVELAMER 800 MG TAB PO SCH ×3 (07:50→17:49)
[2020-09-03] MEDS: ACETAMINOPHEN 500 MG TAB PO PRN (07:55)
--- NOTE | 2020-09-03 08:28 | NUR ---
Dialysis Ended 3L off, HR 120, BP 91/64
[2020-09-03 08:46] VITALS: BP 117/70
--- NOTE | 2020-09-03 09:21 | NUR ---
Consultation MARY spoke with Kristie from [facility] ([phone]), per Kristie, she will call MARY with ETA for wheelchair arrival today 09/03/2020. Per Kristie, patient has been accepted for physical therapy services, service will start 24 - 48 hours post discharge.
[2020-09-03] MEDS: cefTRIAXone 1GM/50ML D5W 50 ML IV SCH (09:31)
[2020-09-03] MEDS: ENOXAPARIN SOD 40 MG/0.4 ML SYRINGE SC SCH (09:32)
[2020-09-03] MEDS: CARISOPRODOL 350 MG TAB PO PRN (09:35)
[2020-09-03] MEDS: METOPROLOL SUCCINATE XL 50 MG TAB PO SCH (09:35)
[2020-09-03] MEDS: NIFEdipine ER 30 MG TAB PO SCH (09:35)
[2020-09-03] MEDS ORDERED: IBUPROFEN 800 MG TAB PO PRN (11:15)
--- NOTE | 2020-09-03 11:39 | NUR ---
MARY spoke with Marina from [facility] ([phone]), Per Marina, wheelchair ETA between 1 - 2 pm today. MARY notified Ai MYLES, about arrival time.
[2020-09-03 13:00] VITALS: BP 90/58
[2020-09-03 13:15] VITALS: BP 90/58
--- NOTE | 2020-09-03 15:00 | NUR ---
Wheelchair Wheelchair delivered to patient at bedside. Patient is unable to transfer to wheelchair with minimum assistance. Patient stated that he just cannot do the transfer and now agrees to go to SNF for rehab.
--- NOTE | 2020-09-03 15:03 | NUR ---
Reassessment Per Karli from [facility], patient mother declined for her son to return home. Per Karli, patient mother stated that she is unable to take care of son. SW notify Che MYLES, per Che MYLES, patient is willing to transfer to SNF for care.
--- NOTE | 2020-09-03 15:20 | NUR ---
SNF request Dr. Ruggiero notified of patient's request for SNF. He is unable to transfer to wheelchair and does not have much help at home.
[2020-09-03] MEDS: FAMOTIDINE 20 MG TAB PO SCH (15:39)
--- NOTE | 2020-09-03 16:45 | NUR ---
Out of bed Patient sitting out of bed in wheelchair. Stated that he transferred to wheelchair by himself. He will press call light when he is ready to return to bed.
[2020-09-03] MEDS ORDERED: VANCOMYCIN 500 MG in D5W 5% 100 ML IV ONE (17:00)
--- NOTE | 2020-09-03 17:14 | NUR ---
Reassessment SW spoke with Lizzie from [facility] ([phone]), patient is being place for SNF. Per Lizzie, patient possibly will transfer to SNF tomorrow. SW notify Jada MYLES, of transfer placement and provided name and number to [facility] after hour Nurse Lizzie, who is placing patient to [facility] if she can get patient accepted to that facility.
--- NOTE | 2020-09-03 17:35 | NUR ---
Back in bed Patient transferred himself back to bed from the wheelchair, he only needed help to reposition in bed.
--- NOTE | 2020-09-03 17:40 | NUR ---
SNF Still awaiting information regarding SNF acceptance. Patient is trying to gain his strength back so he can help himself at home.
--- NOTE | 2020-09-03 19:00 | NUR ---
Opening Shift Note Assumed care of patient, awake and alert. No S/S of distress/SOB or pain. Instructed on POC and to call for assist PRN, will continue to monitor for changes Q1hr and PRN.
--- NOTE | 2020-09-03 19:25 | NUR ---
[facility] Received call from [facility] regarding SNF transfer. They are arranging for patient to be transferred to SNF [facility]. New COVID test needed. cloth grader supervisor and beverage inspection machine tender RN was notified.
[2020-09-03] MEDS ORDERED: EPOETIN ALFA 10,000 UNIT/1 ML VIAL SC ONE (21:00)
[2020-09-03 22:00] VITALS: BP 94/47
[2020-09-04] MEDS: MORPHINE SULF INJ 2 MG/ML SYRINGE 1ML IV PRN (03:01)
[2020-09-04 05:00] VITALS: BP 109/65
[2020-09-04 06:53] LABS: Basophils # (auto) 0 10 ^3/uL (0-0.2); Basophils % (auto) 0.4 % (0.0-2.0); Eosinophils # (auto) 0.1 10 ^3/uL (0-0.8); Eosinophils % (auto) 0.5 % (0.0-7.0); Hematocrit 29.5 % (41.0-53.0); Hemoglobin 9.4 g/dL (13.5-17.5); Lymphocytes # (auto) 0.5 10 ^3/uL (0.4-5.4); Lymphocytes % (auto) 4.2 % (10.0-50.0); Mean Corpuscular Hemoglobin 29.7 pg (28.0-32.0); Mean Corpuscular Hgb Conc. 31.7 g/dL (32.0-36.0); Mean Corpuscular Volume 93.8 fL (80.0-100.0); Monocytes # (auto) 1.7 10 ^3/uL (0-1.3); Monocytes % (auto) 13.3 % (0.0-12.0); Neutrophils # (auto) 10.5 10 ^3/uL (1.6-8.6); Neutrophils % (auto) 81.6 % (37.0-80.0); Platelet Count (auto) 369 10^3/uL (140-450); Red Blood Cells 3.15 10^6/uL (4.5-5.90); Red Cell Distribution Width 15.9 % (11.8-14.3); White Blood Cell 12.9 10^3/uL (4.4-10.8)
--- NOTE | 2020-09-04 07:50 | NUR ---
PATIENT REFUSING RENAGEL STATES HE WILL WAIT TILL LATER HER DID NOT EAT BREAKFAST.
[2020-09-04] MEDS: SEVELAMER 800 MG TAB PO SCH ×3 (08:00→18:30)
[2020-09-04 09:00] VITALS: BP 109/68
--- NOTE | 2020-09-04 09:07 | NUR ---
Opening Shift Note Assumed care of patient, awake and alert. No S/S of distress/SOB or pain. Instructed on POC and to call for assist PRN, will continue to monitor for changes Q1hr and PRN. Bed locked in lowest position with two side rails up and call light in reach.
--- NOTE | 2020-09-04 09:30 | NUR ---
CONTACTED DR JAUREGUI REGARDING TRANSFER PAPERWORK.WILL AWAIT CALL BACK.
[2020-09-04] MEDS: NIFEdipine ER 30 MG TAB PO SCH (09:41)
[2020-09-04] MEDS: cefTRIAXone 1GM/50ML D5W 50 ML IV SCH (09:43)
[2020-09-04] MEDS: ENOXAPARIN SOD 40 MG/0.4 ML SYRINGE SC SCH (09:43)
[2020-09-04] MEDS: METOPROLOL SUCCINATE XL 50 MG TAB PO SCH (10:00)
--- NOTE | 2020-09-04 10:02 | NUR ---
PER DR JAUREGUI HE SPOKE TO DR AMADOR AND PER DR AMADOR PATIENT WILL BE RECEIVING VANCOMYCIN WITH DIALYSIS.
--- NOTE | 2020-09-04 11:05 | NUR ---
CALLED [facility] AND SPOKE WITH OUTBOUND TELEMARKETING REPRESENTATIVE BRIGITTE REGARDING PATIENT TRANSFER. [phone], PER BRIGITTE THEY NEED OUR NEGATIVE COVID RESULTS FAXED OVER. I WILL FAX OVER TO [phone]. ONCE THEY RECEIVE SHE WILL CALL ME BACK AND TRY TO GET A SNF FOR PATIENT.
--- NOTE | 2020-09-04 12:13 | NUR ---
CALLED [facility] TO VERIFY COVID RESULTS WERE RECEIVED PER ROHIT YES THEY RECEIVED.
--- NOTE | 2020-09-04 12:36 | NUR ---
Nutrition Assessment Est energy needs 9500-8222 kcal (25-27 kcal/kg BW 81.7kg) Est protein needs 98-114g (1.2-1.4g/kg BW 81.7kg r/t ESRD on HD) Will monitor and reassess prn. Addendum: 09/04/20 at [address] Amended: Links added.
[2020-09-04 13:00] VITALS: BP 103/58
--- NOTE | 2020-09-04 14:00 | NUR ---
RECEIVED A CALL FROM [facility], LINE GOT DISCONNECTED. WAITED FOR CALL BACK BUT NO RETURN PHONE CALL RECEIVED. CALLED BACK TO [facility] AT [phone] AND SPOKE WITH ODILIA, PER ODILIA HE SPOKE WITH CASE MANAGEMENT THADDEUS AND THEY ARE STILL WORKING ON PLACEMENT AND WILL UPDATE THADDEUS ONCE THAT IS DONE, HE IS ALSO NOT SURE THAT WILL HAPPEN TODAY.
--- NOTE | 2020-09-04 16:15 | NUR ---
Patient declined P.T. today.
[2020-09-04 17:00] VITALS: BP 105/72
--- NOTE | 2020-09-04 17:39 | NUR ---
NOTIFIED DR JAUREGUI THAT PATIENT IS STILL HERE AND HAS NO BED AT THIS TIME.
[2020-09-04 22:00] VITALS: BP 99/73
[2020-09-05] MEDS: CARISOPRODOL 350 MG TAB PO PRN ×2 (04:47→15:02)
[2020-09-05 05:00] VITALS: BP 103/79
[2020-09-05] MEDS: SEVELAMER 800 MG TAB PO SCH ×3 (07:48→17:45)
[2020-09-05 07:58] LABS: Basophils # (auto) 0 10 ^3/uL (0-0.2); Basophils % (auto) 0.3 % (0.0-2.0); Eosinophils # (auto) 0.1 10 ^3/uL (0-0.8); Eosinophils % (auto) 0.9 % (0.0-7.0); Hematocrit 27.7 % (41.0-53.0); Hemoglobin 9.3 g/dL (13.5-17.5); Lymphocytes # (auto) 0.7 10 ^3/uL (0.4-5.4); Lymphocytes % (auto) 7.4 % (10.0-50.0); Mean Corpuscular Hemoglobin 31.4 pg (28.0-32.0); Mean Corpuscular Hgb Conc. 33.4 g/dL (32.0-36.0); Mean Corpuscular Volume 94.2 fL (80.0-100.0); Monocytes # (auto) 1.2 10 ^3/uL (0-1.3); Monocytes % (auto) 12.7 % (0.0-12.0); Neutrophils # (auto) 7.6 10 ^3/uL (1.6-8.6); Neutrophils % (auto) 78.7 % (37.0-80.0); Platelet Count (auto) 400 10^3/uL (140-450); Red Blood Cells 2.95 10^6/uL (4.5-5.90); Red Cell Distribution Width 15.6 % (11.8-14.3); White Blood Cell 9.6 10^3/uL (4.4-10.8)
[2020-09-05 08:00] VITALS: BP 94/73
[2020-09-05 08:15] LABS: BUN/Creatinine Ratio 8.3; Calcium 7.6 mg/dL (8.5-10.1); Potassium 5.3 mmol/L (3.5-5.1)
--- NOTE | 2020-09-05 08:18 | NUR ---
RECEIVED CALL FROM [facility] IN BLOOD BANK FOR CRITICAL LABS. BUN 141 CREA 17
[2020-09-05 09:00] VITALS: BP 94/73
[2020-09-05] MEDS: NIFEdipine ER 30 MG TAB PO SCH (10:00)
[2020-09-05] MEDS: METOPROLOL SUCCINATE XL 50 MG TAB PO SCH (10:00)
[2020-09-05] MEDS: ENOXAPARIN SOD 40 MG/0.4 ML SYRINGE SC SCH (11:41)
[2020-09-05] MEDS: cefTRIAXone 1GM/50ML D5W 50 ML IV SCH (11:42)
[2020-09-05 12:57] VITALS: BP 112/69
[2020-09-05] MEDS: FAMOTIDINE 20 MG TAB PO SCH (15:01)
--- NOTE | 2020-09-05 15:43 | NUR ---
RECEIVED A CALL FROM ODILIA AT [facility]. PATIENT HAS BED AT [facility] ACUTE ROOM 105 BED2 REPORT TO BE CALLED TO [phone]. PER ODILIA HE WILL ARRANGE TRANSPORT TODAY AND WILL CALL ME BACK FOR RESIDENTIAL CHILD CARE COUNSELOR TIME.
[2020-09-05 17:04] VITALS: BP 126/79
--- NOTE | 2020-09-05 18:34 | NUR ---
ATTEMPTED TO CALL REPORT TO [facility] AT [phone]. NO ANSWER WILL TRY BACK.
--- NOTE | 2020-09-05 18:40 | NUR ---
ATTEMPTED ANOTHER CALL BACK TO [facility] NO ANSWER.
--- NOTE | 2020-09-05 18:44 | NUR ---
CALLED [facility], AND PER AFTER HOURS ANSWERING SERVICE PATIENT CANNOT BE PICKED UP THEY ARE UNABLE TO SCHEDULE WITH [facility] OR [facility]. I ASKED IF THERE WAS DOCUMENTATION TO WHY AND SHE DOES NOT KNOW. SHE WILL TRY TO FIND OUT. OUR V NUMBER AND EXT TO [facility] WAS GIVEN WILL AWAIT RETURN PHONE CALL AND ENDORSE TO [facility] NURSE.
--- NOTE | 2020-09-05 20:10 | NUR ---
DISCHARGE ARM ARRIVED AT 194 TO PICK PATIENT UP TO TRANSPORT TO [facility]. VSS B/P 121/71 HR 107 RR 17 O2 95% ON ROOM AIR TEMP 98.8 TELEMETRY REMOVED AND SENT BACK TO ICU. IV REMOVED CATHETER INTACT. W/C AND ALL PATIENT BELONGINGS TRANSFERED WITH PATIENT
--- NOTE | 2020-09-05 20:50 | NUR ---
REPORT REPORT GIVEN TO KEYONA AT [facility]
== END 2020-09-05 20:10 | DRG 871 ==
LOC: ER 06:21 → EDBD 06:21 → TELE 06:22 → TELE-WESTW 08-31 11:17
PROVIDERS: ADMIT Nurse Practitioner Acute Care; ATTEND Internal Medicine Geriatric Medicine
PROC: 5A1D70Z Performance of Urinary Filtration, Intermittent, Less than 6 Hours Per Day (ICD-10-PCS; principal; 2020-08-31)
PROC: 5A1D70Z Performance of Urinary Filtration, Intermittent, Less than 6 Hours Per Day (ICD-10-PCS; 2020-09-01)
PROC: 5A1D70Z Performance of Urinary Filtration, Intermittent, Less than 6 Hours Per Day (ICD-10-PCS; 2020-09-03)
DX: A41.89 Other specified sepsis (principal); N18.6 End stage renal disease; E44.0 Moderate protein-calorie malnutrition; E87.1 Hypo-osmolality and hyponatremia; I12.0 Hypertensive chronic kidney disease with stage 5 chronic kidney disease or end stage renal disease; N25.81 Secondary hyperparathyroidism of renal origin; E87.5 Hyperkalemia; D63.8 Anemia in other chronic diseases classified elsewhere; D63.1 Anemia in chronic kidney disease; Z20.828 Contact with and (suspected) exposure to other viral communicable diseases; Z75.1 Person awaiting admission to adequate facility elsewhere; Z79.899 Other long term (current) drug therapy; Z83.3 Family history of diabetes mellitus; Z99.2 Dependence on renal dialysis; B96.89 Other specified bacterial agents as the cause of diseases classified elsewhere; Z88.0 Allergy status to penicillin; Z68.23 Body mass index [BMI] 23.0-23.9, adult
CPT/HCPCS: 36415; 71045; 80048; 80053; 80202; 82565; 82728; 82962; 83615; 83735; 83880; 84132; 84484; 85025; 86141; 87040; 87077; 87147; 87186; 87426; 90935; 94640; 96365; 97163; G0378; J0610; J0696; J0885; J1642; J1815; J2405; J3490; J7060

== ENCOUNTER 2024-06-02 16:14 | Emergency (ER) | payer MEDICAID, OTHER ==
[~2024-06-02] VITALS: Ht 157.5 cm; Wt 66.2 kg
[~2024-06-02 16:14] MED LIST changes: +HYDR-4833 PO; -METO-169 PO; +METO-289 PO
[2024-06-02 18:51] VITALS: PULSE 104; RESP 18; O2SAT 93
[2024-06-02 18:57] LABS: Basophils # (auto) 0 10 ^3/uL (0-0.2); Basophils % (auto) 0.9 % (0.0-2.0); Eosinophils # (auto) 0.3 10 ^3/uL (0-0.8); Eosinophils % (auto) 10.4 % (0.0-7.0); Hematocrit 34.9 % (41.0-53.0); Hemoglobin 11.5 g/dL (13.5-17.5); Lymphocytes # (auto) 0.7 10 ^3/uL (0.4-5.4); Lymphocytes % (auto) 23.3 % (10.0-50.0); Mean Corpuscular Hemoglobin 30.8 pg (28.0-32.0); Mean Corpuscular Volume 93.4 fL (80.0-100.0); Monocytes # (auto) 0.4 10 ^3/uL (0-1.3); Monocytes % (auto) 12.4 % (0.0-12.0); Neutrophils # (auto) 1.7 10 ^3/uL (1.6-8.6); Platelet Count (auto) 134 10^3/uL (140-450); Red Blood Cells 3.74 10^6/uL (4.5-5.90); Red Cell Distribution Width 18.1 % (11.8-14.3); White Blood Cell 3.1 10^3/uL (4.4-10.8)
[2024-06-02] MEDS: LABETALOL HCL 20 MG/4 ML VL IV ONE (19:15)
[2024-06-02 19:18] LABS: Alanine Aminotransferase 12 U/L (7-40); Albumin 4.5 g/dL (3.2-4.8); Anion Gap 10 (5-15); Aspartate Aminotransferase < 8 U/L (13-40); Blood Urea Nitrogen 29 mg/dL (9-23); Carbon Dioxide 26 mmol/L (20-30); Chloride 103 mmol/L (98-107); Glucose 79 mg/dL (74-106); Potassium 4.1 mmol/L (3.5-5.1); Sodium 139 mmol/L (136-145)
[2024-06-02 19:19] LABS: Bilirubin, Total 0.4 mg/dL (0.2-1.0); Total Protein 7.4 g/dL (5.7-8.2)
[2024-06-02 19:20] VITALS: PULSE 77; RESP 18; O2SAT 94
[2024-06-02 19:27] LABS: Alkaline Phosphatase 1054 U/L (46-116)
[2024-06-02 19:42] VITALS: BP 141/99; PULSE 90; RESP 11; TEMP 98.1; O2SAT 93
== END 2024-06-02 19:55 | disposition short-term general hospital (02) ==
LOC: ER 16:14
DX: I62.9 Nontraumatic intracranial hemorrhage, unspecified (principal); I12.0 Hypertensive chronic kidney disease with stage 5 chronic kidney disease or end stage renal disease; N18.6 End stage renal disease; Z88.0 Allergy status to penicillin
CPT/HCPCS: 36415; 70450; 71045; 80053; 82962; 83735; 84484; 85025; 93005; 99291